=== PATIENT | male | born 1995 | race Caucasian/White ===

== ENCOUNTER 2022-12-10 05:01 | Emergency (ER) | payer SELFPAY ==
[~2022-12-10] VITALS: Ht 172.7 cm; Wt 90.5 kg
[2022-12-10 06:28] VITALS: BP 161/79
[2022-12-10] MEDS ORDERED: ETOMIDATE (2MG/ML) 20ML VIAL IV ONE (06:30)
[2022-12-10] MEDS ORDERED: IBU600T PO (07:33)
== END 2022-12-10 07:45 | disposition home or self-care (01) ==
LOC: ER 05:01
DX: S43.014A Anterior dislocation of right humerus, initial encounter (principal); X58.XXXA Exposure to other specified factors, initial encounter; Y93.55 Activity, bike riding; Y92.488 Other paved roadways as the place of occurrence of the external cause; Y99.8 Other external cause status
CPT/HCPCS: 23650; 73020; 73030; 96372; 96374